=== PATIENT | female | born 1965 | race Caucasian/White ===

== ENCOUNTER → 2020-04-29 09:40 | Outpatient (BNVA) | payer MEDICAID, SELFPAY | PROVIDERS: Visit Provider Family Medicine | DX: I10 Essential (primary) hypertension (principal); G47.10 Hypersomnia, unspecified | CPT/HCPCS: 80053; 80061; 82044; 85025 ==

== ENCOUNTER → 2020-07-21 17:47 | Outpatient (BNVA) | payer MEDICAID, SELFPAY | PROVIDERS: PCP Family Medicine; Visit Provider Nurse Practitioner Family | DX: Z20.828 Contact with and (suspected) exposure to other viral communicable diseases (principal); J06.9 Acute upper respiratory infection, unspecified | CPT/HCPCS: 87635 ==

== ENCOUNTER 2021-01-25 02:27 | Emergency (ER) | payer BC, MEDICAID, SELFPAY ==
[2021-01-25 02:35] VITALS: BP 199/122; PULSE 94; RESP 18; TEMP 36.7; O2SAT 98; BMI 31.9
[2021-01-25 02:57] VITALS: PULSE 94
--- NOTE | 2021-01-25 03:13 | W.ED.EXTPRO ---
HPI - Extremity Problem General: Chief complaint: Extremity Problem,Nontraumatic Stated complaint: finger pain Time Seen by Provider: 01/25/21 02:32 History of Present Illness: HPI Narrative: 55-year-old female who had a hangnail on her right ring finger. She removed it on her own, and then began to notice swelling and redness. It swollen quite badly at the tip this morning with redness. She states the pain is excruciating . No fever. No vomiting no streaking. She still can bend the finger. MD Complaint: extremity pain and extremity swelling Onset (ago): day(s) Pain Consistency: constant Location: right Severity scale (1-10): >10 Quality: burning and stabbing Radiation: none Relieving factors: nothing Exacerbating factors: range of motion and palpation Associated symptoms: Reports rash; Deny chest pain or fever(s) Review of Systems Const: Denies: fever(s) Card: Denies: chest pain Resp: Denies: dyspnea GI: Reports: nausea; Denies: abdominal pain or vomiting Skin/Breast: Reports: rash [facility] ED PFSH: Medical History (Updated 01/25/21 @ 02:58 by [place] Ocho[place] DO) Essential hypertension Surgical History History of neck surgery C4-C5 fusion. Family History Other CAD (coronary artery disease) Social History Smoking and tobacco status: current every day smoker cigarettes Packs smoked per day: 0.5 Alcohol intake: never Physical Exam Const: COMMON NORMALS: patient oriented x3 and alert GENERAL APPEARANCE: not ill appearing Chest: COMMONS NORMALS: normal inspection of the chest Resp: COMMON NORMALS: normal respiratory effort, No use of accessory muscles and clear to auscultation bilaterally AUSCULTATION: clear to auscultation bilaterally Cardio: COMMON NORMALS: regular rate, regular rhythm and No murmurs present (Cardio) RATE: regular rate RHYTHM: regular rhythm GI: COMMON NORMALS: Normal to inspection, nondistended, normoactive bowel sounds present and Soft to palpation PALPATION: Yes Soft to palpation Neuro: COMMON NORMALS: patient oriented x3 SENSORIUM/ORIENTATION: Yes alert Course Vital Signs: Vital signs: Vital Signs Temperature 98.0 F 01/25/21 02:35 Pulse Rate 94 01/25/21 02:57 Respiratory Rate 18 01/25/21 02:35 Blood Pressure 199/122 01/25/21 02:35 Pulse Oximetry 98 01/25/21 02:35 MDM - Extremity (Nontraumatic) MDM Narrative: Medical decision making narrative: Obvious cellulitis and paronychia to the tip of the right ring finger. No fever. She will be treated with pain medication antibiotics. 1 dose of dexamethasone for the swelling. Discharge Plan Discharge Patient Disposition: Home Clinical Impression: Acute paronychia of finger Qualifiers: Laterality: right Qualified Code(s): L03.011 - Cellulitis of right finger Condition: Stable Prescriptions: New Bactrim DS 800-160 mg tablet 1 tab PO BID 10 Days Qty: 20 RF: 0 Percocet 7.5-325 mg tablet 1 tab PO Q8H PRN (Reason: pain) Qty: 7 RF: 0 No Action lisinopril-hydrochlorothiazide 10-12.5 mg tablet 1 tab PO DAILY Qty: 90 RF: 1 Discharge Orders: Discharge ED (Routine); Ordered 01/25/21 Ordered By: [place] Ocho[place] Referrals: Ana Paula May DO [Primary Care Provider] - 4-7 days (for wound check) Patient Instructions: Paronychia (ED), Cellulitis (ED), Opioid Safety Activity Restrictions/Additional Instructions: Return for fever greater than 100 despite 2-3 doses of antibiotics, worsening pain or swelling despite treatment and antibiotics, streaking redness up the hand and forearm, other concerning symptoms. Coding Level of Care Code ED Christian Education Director for Trina Solorio
[2021-01-25] MEDS: ketorolac 30 mg/mL INJ 10 MG PO (03:14)
[2021-01-25] MEDS: sulfamethoxazole-trimeth DS 160-800 mg Tablet 2 TAB PO (03:15)
[2021-01-25] MEDS: dexamethasone 4 mg Tablet 10 MG PO (03:15)
[2021-01-25] MEDS: oxyCODONE-APAP 5-325 mg Tablet 2 TAB PO (03:16)
[2021-01-25 03:18] VITALS: RESP 18; TEMP 36.7
== END 2021-01-25 03:19 | disposition home or self-care (01) ==
PROVIDERS: Emergency Provider Emergency Medicine; PCP Family Medicine
DX: L03.011 Cellulitis of right finger (principal); I10 Essential (primary) hypertension; F17.210 Nicotine dependence, cigarettes, uncomplicated
CPT/HCPCS: 99283; J1885; J8540

== ENCOUNTER → 2021-05-06 13:23 | Outpatient (BNVA) | payer BC, MEDICAID, SELFPAY | PROVIDERS: PCP Family Medicine; Visit Provider Nurse Practitioner | DX: Z20.828 Contact with and (suspected) exposure to other viral communicable diseases (principal); Z11.52 Encounter for screening for COVID-19 | CPT/HCPCS: 87635 ==

== ENCOUNTER 2021-05-31 08:10 | Emergency (ER) | payer BC, MEDICAID, SELFPAY ==
[2021-05-31 08:41] VITALS: BP 167/85; PULSE 94; RESP 16; TEMP 36.5; O2SAT 95; BMI 32.6
[2021-05-31 08:46] VITALS: BP 167/85; PULSE 94; RESP 16; O2SAT 97
--- NOTE | 2021-05-31 08:46 | ED_ITS ---
HPI - Animal Bite General: Chief Complaint: Animal Bite Stated Complaint: POSSIBLE SPIDER BITE TO BILATERAL ARMS Time Seen by Provider: 05/31/21 08:37 Source: patient Mode of arrival: ambulatory Limitations: no limitations History of Present Illness: HPI narrative: 56-year-old female who states that yesterday she woke up with she believes insect bite to her right and left arm. She does have areas of erythema to both arms with what appears to be bites in the middle. She denies any fever. States that they are quite pruritic. She denies any pain. Denies any worsening improving factors. Associated symptoms: Deny chills, fever(s) or headache(s) Review of Systems Const: Denies: fever(s), chills, body aches or change in appetite Eyes: Denies: blurry vision or eye discomfort ENMT: Denies: throat pain or dental pain Card: Denies: chest pain Resp: Denies: dyspnea GI: Denies: abdominal pain, nausea, vomiting or diarrhea : Denies: dysuria Musc: Denies: neck pain or back pain Skin/Breast: Reports: rash Neuro: Denies: headache(s) Psych: Denies: depression Wally/Lymph: Denies: easy bruising All/Imm: Denies: urticaria PFSH ED PFSH: Medical History (Updated 05/31/21 @ 08:47 by Win Herring MD) Essential hypertension Surgical History History of neck surgery C4-C5 fusion. Family History Other CAD (coronary artery disease) Social History Smoking and tobacco status: current every day smoker cigarettes Packs smoked per day: 0.5 Alcohol intake: never Physical Exam Const: COMMON NORMALS: no acute distress, patient oriented x3 and healthy appearing HENMT: COMMON NORMALS: normocephalic and atraumatic HEAD & SCALP: normocephalic and atraumatic Eye: COMMON NORMALS: Equal, round and reactive pupils present and EOMs intact bilaterally PUPIL: Yes Equal, round and reactive pupils present Neck/C-Spine: COMMON NORMALS: full ROM and supple Chest: COMMONS NORMALS: normal inspection of the chest and normal palpation of entire chest wall Resp: COMMON NORMALS: normal respiratory effort, No retractions, No use of accessory muscles and clear to auscultation bilaterally AUSCULTATION: clear to auscultation bilaterally Cardio: COMMON NORMALS: regular rate, regular rhythm and No murmurs present (Cardio) RATE: regular rate RHYTHM: regular rhythm GI: COMMON NORMALS: Normal to inspection, nondistended, normoactive bowel sounds present, Soft to palpation, non-tender and no masses PALPATION: Yes Soft to palpation Extremity: COMMON NORMALS: full ROM NARRATIVE EXTREMITY EXAM: Erythema to left inner arm with an insect bite to the center with roughly 3 cm of surrounding erythema another insect bite to right arm with very minimal erythema no abscess noted Neuro: COMMON NORMALS: patient oriented x3, moves all extremities and no focal motor deficits Psych: COMMON NORMALS: mental status grossly normal, Normal thought process present and cooperative THOUGHT PROCESS: Normal thought process present Skin: COMMON NORMALS: no rashes or lesions noted and no wounds GENERAL SKIN EXAM: no rashes or lesions noted Course Vital Signs: Vital signs: Vital Signs Temperature 97.7 F 05/31/21 08:41 Pulse Rate 94 05/31/21 08:46 Respiratory Rate 16 05/31/21 08:46 Blood Pressure 167/85 05/31/21 08:46 Pulse Oximetry 97 05/31/21 08:46 MDM - Animal Bite MDM Narrative: Medical decision making narrative: Patient presents with likely insect bite to her bilateral arms. More left arm does have some erythema surrounding it could be histamine reaction also could be a slight cellulitis as it is warm to touch. We will start her on Bactrim and Keflex. She is to follow-up with PCP and return if worsening. She has no abscess formation. Discharge Plan Discharge Patient Disposition: Home Clinical Impression: Insect bite Qualifiers: Encounter type: initial encounter Site of insect bite: upper arm Laterality: unspecified laterality Qualified Code(s): S40.869A - Insect bite (nonvenomous) of unspecified upper arm, initial encounter Cellulitis Qualifiers: Site of cellulitis: extremity Site of cellulitis of extremity: upper extremity Laterality: unspecified laterality Qualified Code(s): L03.119 - Cellulitis of unspecified part of limb Condition: Stable Prescriptions: New Bactrim DS 800-160 mg tablet 1 tab PO BID 10 Days Qty: 20 RF: 0 cephalexin 500 mg capsule 500 mg PO TID 7 Days Qty: 21 RF: 0 No Action atorvastatin 20 mg tablet 20 mg PO DAILY Qty: 30 RF: 0 lisinopril-hydrochlorothiazide 10-12.5 mg tablet 1 tab PO DAILY Qty: 30 RF: 0 Discharge Orders: Discharge ED (Routine); Ordered 05/31/21 Ordered By: Win Herring Referrals: Ana Paula May DO [Primary Care Provider] - 1-3 days Discharge Diet: Advance as tolerated Discharge Activity: Resume usual activity Patient Instructions: Opioid Safety Coding Level of Care Code ED Outcomes Manager for Trina Solorio
[2021-05-31] MEDS: diphenhydrAMINE 50 mg Capsule PO (08:50)
[2021-05-31] MEDS: famotidine 20 mg Tablet 40 MG PO (08:50)
[2021-05-31 08:59] VITALS: BP 156/79; PULSE 90; RESP 16; O2SAT 94
== END 2021-05-31 08:59 | disposition home or self-care (01) ==
LOC: ER 12:36
PROVIDERS: Emergency Provider Emergency Medicine; PCP Family Medicine
DX: S40.862A Insect bite (nonvenomous) of left upper arm, initial encounter (principal); S40.861A Insect bite (nonvenomous) of right upper arm, initial encounter; W57.XXXA Bitten or stung by nonvenomous insect and other nonvenomous arthropods, initial encounter; L03.114 Cellulitis of left upper limb; I10 Essential (primary) hypertension; F17.210 Nicotine dependence, cigarettes, uncomplicated
CPT/HCPCS: 99283; Q0163

== ENCOUNTER → 2021-11-19 15:17 | Outpatient (BNVA) | payer BC, MEDICAID, SELFPAY | PROVIDERS: PCP Family Medicine; Visit Provider Nurse Practitioner Family | DX: Z20.822 Contact with and (suspected) exposure to COVID-19 (principal) | CPT/HCPCS: 87635 ==

== ENCOUNTER → 2021-11-20 01:34 | Outpatient (BNVA) | payer BC, MEDICAID, SELFPAY | PROVIDERS: PCP Family Medicine; Visit Provider Nurse Practitioner Family | DX: Z20.822 Contact with and (suspected) exposure to COVID-19 (principal); I10 Essential (primary) hypertension; F17.219 Nicotine dependence, cigarettes, with unspecified nicotine-induced disorders; B34.9 Viral infection, unspecified | CPT/HCPCS: 87801 ==

== ENCOUNTER → 2022-04-08 12:58 | Outpatient (BNVA) | payer BC, MEDICAID, SELFPAY | PROVIDERS: PCP Family Medicine; Visit Provider Radiology Diagnostic Radiology | DX: I10 Essential (primary) hypertension (principal); M25.561 Pain in right knee; F17.219 Nicotine dependence, cigarettes, with unspecified nicotine-induced disorders | CPT/HCPCS: 73562 ==

== ENCOUNTER → 2022-06-27 18:39 | Outpatient (BNVA) | payer BC, MEDICAID, SELFPAY | PROVIDERS: PCP Family Medicine; Visit Provider Family Medicine | DX: Z20.822 Contact with and (suspected) exposure to COVID-19 (principal); I10 Essential (primary) hypertension | CPT/HCPCS: 87426 ==

== ENCOUNTER → 2024-06-07 07:15 | Outpatient (BNVA) | payer BC, MEDICAID, SELFPAY | PROVIDERS: PCP Nurse Practitioner Family; Visit Provider Nurse Practitioner Family | DX: I10 Essential (primary) hypertension (principal); E78.5 Hyperlipidemia, unspecified; F17.219 Nicotine dependence, cigarettes, with unspecified nicotine-induced disorders | CPT/HCPCS: 80053; 80061; 84443; 85025 ==

== ENCOUNTER 2024-08-08 09:47 | Day surgery (SDC) | payer BC, MEDICAID, SELFPAY ==
[2024-08-08] VITALS (7 sets, daily range): BP systolic 120–173; BP diastolic 68–102; PULSE 63–86; RESP 18; TEMP 36.1–36.2; O2SAT 95–99; BMI 31.9
--- NOTE | 2024-08-08 09:54 | ANES.PREANE2 ---
Pre-Anesthetic Assessment Height/Weight: Height 1.73 m Preop Diagnosis: abd. pain Operation Date: 08/08/24 11:00 Proposed Procedures p Colonoscopy - 38449, G0105, K52.9, R10.9(Not Applicable) - Daquan Crawford DO Familial anesthetic complications: none Was Beta Tammy taken within 24 hours: N/A Was Clonidine taken within 24 hours: N/A Social Tobacco (1 ppd. smoked this AM- increased airway risk, patient verbalized understanding) Exam alert and oriented x 3 Airway Submandibular: within normal limits Cervical ROM: within normal limits Mallampati: Class II Dentition: full Pulmonary Chronic Obstructive Pulmonary Disease (patient denies) CV/HEM Stable Angina (pt states she has had chest pain that radiates to jaw and throat, many times. she doesnt recall any preciptating factors, just comes out of nowhere . pt. states she hasnt had it in at least a year .), Hypertension and Murmur (systolic murmur) CORRECTIONAL CLASSIFICATION COUNSELOR discussed at length to go to ER when chest pain occurs again and discussed chest pain is a life or emergency; pt. verbalized understanding. CORRECTIONAL CLASSIFICATION COUNSELOR ordered EKG. CORRECTIONAL CLASSIFICATION COUNSELOR also discussed she is at higher risk for [place] under anesthesia d/t previous chest pain and never going to ER. pt. states she doesnt go to doctor unless she is sick. quit taking her BP meds d/t not wanting to go to follow-up appointment with doctor. does not have PCP, only sees ER doc at this time. currently METS 4, no chest pain in at least a year . None reported Hepatic None reported GI None reported Metabolic None reported Musc/skel None reported Neuropsych None reported Anesthetic Plan ASA status: 3 Anesthesia: Anesthesia Evaluation, General and MAC Risk of > 500 ml blood loss (7ml/kg in children): No Medications/Allergies Home Medications Medication Instructions Recorded Confirmed Last Taken Type fluoxetine 20 mg capsule (Prozac) 20 mg PO DAILY #30 caps 07/09/24 08/08/24 08/07/24 Rx lisinopril 10 mg tablet 10 mg PO DAILY #30 tabs 07/17/24 08/07/24 Unknown Rx Allergies Allergy/AdvReac Type Severity Reaction Status Date / Time No Known Allergies Allergy Verified 08/08/24 10:17 [facility] Anesthesia Medical History Hemorrhoids Encounter for screening colonoscopy Acute conjunctivitis, bilateral URI with cough and congestion Essential hypertension Surgical History History of neck surgery C4-C5 fusion. Family History Other CAD (coronary artery disease) Social History Smoking and tobacco/nicotine status: never used tobacco/nicotine Alcohol intake: never Substance/Drug Use: former Date of last use: 2006 Data Anesthesia Cardiac Studies: No Data to Display
[2024-08-08] MEDS: sodium chloride 0.9% 1,000 ML 30 ML IV (10:20)
--- NOTE | 2024-08-08 10:30 | ECG_ITS ---
[facility] Test Date: 2024-08-08 Pat Name: Mame Lima Department: Room: Gender: Female Building Operator: : 1965 Requested By: Lachelle Martinez Order Number: [id number] Reading MD: AMARILYS EDWARD Measurements Intervals [place] Rate: 73 P: 33 MS: 159 QRS: 17 QRSD: 87 T: 54 QT: 410 QTc: 454 Interpretive Statements SINUS RHYTHM No previous ECG available for comparison Electronically Signed On 08-08-2024 20:05:49 CDT by AMARILYS EDWARD [id number]
--- NOTE | 2024-08-08 10:47 | PM.HP ---
Providers/Chief Complaint Primary Care Provider: Yuli Singer NP Chief Complaint: K52.9 History of Present Illness Mame Lima is a 59 year old female Review of Systems General: Reports: 10 or more systems reviewed and unremarkable except in HPI and below Medications/Allergies Home Medications Medication Instructions Recorded Confirmed Last Taken Type fluoxetine 20 mg capsule (Prozac) 20 mg PO DAILY #30 caps 07/09/24 08/08/24 08/07/24 Rx lisinopril 10 mg tablet 10 mg PO DAILY #30 tabs 07/17/24 08/07/24 Unknown Rx Allergies Allergy/AdvReac Type Severity Reaction Status Date / Time No Known Allergies Allergy Verified 08/08/24 10:17 PFSH Acute PFSH: Medical History Hemorrhoids Encounter for screening colonoscopy Acute conjunctivitis, bilateral URI with cough and congestion Essential hypertension Surgical History History of neck surgery C4-C5 fusion. Family History Other CAD (coronary artery disease) Social History Smoking and tobacco/nicotine status: never used tobacco/nicotine Alcohol intake: never Substance/Drug Use: former Date of last use: 2006 Vitals/I&O/Wt Last Vital Signs Temp 97.2 F L 08/08/24 10:07 Pulse 86 08/08/24 10:07 Resp 18 08/08/24 10:07 BP 159/102 08/08/24 10:07 Pulse Ox 97 08/08/24 10:07 O2 Del Method Room Air 08/08/24 10:07 Weight last 48 hrs Weight 210 lb A&P Assessment and plan (1) Chronic diarrhea: (2) Abdominal pain: Plan Diagnostic colonoscopy with random biopsies Attestations Medical Necessity Statement*: Home Coding Level of Care Code Acute Code for Chg Fwd Diagnoses Chronic diarrhea K52.9 Abdominal pain R10.9
--- NOTE | 2024-08-08 11:28 | ANE.PACU2 ---
Inpatient post-anesthesia follow up: Airway intact: Yes Vital signs: Temperature 97 F Pulse Rate 63 Respiratory Rate 18 Blood Pressure 143/75 Pulse Oximetry 99 Oxygen Delivery Me thod Room Air Oxygen Flow Rate Fraction of Inspir ed Oxygen Hydration adequate: Yes Nausea and vomiting: No Pain level: 1 Mental status: Baseline
--- NOTE | 2024-08-08 11:43 | PC.NURSE ---
Dr. Crawford notified of pt complaint of headache. dilaudid 1 mg ivp ordered.
[2024-08-08] MEDS: HYDROmorphone 1 mg/mL INJ 1 mL IV (11:54)
[2024-08-08 12:53] LABS: C.Diff PCR (Lab) NEGATIVE (Negative)
== END 2024-08-08 12:33 | disposition home or self-care (01) ==
PROVIDERS: PCP Nurse Practitioner Family; Visit Provider Surgery
PROC: 0DJD8ZZ Inspection of Lower Intestinal Tract, Via Natural or Artificial Opening Endoscopic (ICD-10-PCS; CPT 45378; principal; 2024-08-08 11:00)
DX: K52.9 Noninfective gastroenteritis and colitis, unspecified (principal); I10 Essential (primary) hypertension; K64.8 Other hemorrhoids; D12.5 Benign neoplasm of sigmoid colon; F17.200 Nicotine dependence, unspecified, uncomplicated
CPT/HCPCS: 45380; 45385; 82274; 83630; 87045; 87177; 87209; 87427; 87449; 87493; 88305; 93005; J0360; J1170; J2704; J7030

== ENCOUNTER 2024-08-10 07:33 | Outpatient (CLI) | payer BC, MEDICAID, SELFPAY ==
--- NOTE | 2024-08-10 08:00 | NM_ITS ---
WS: [id number] NUCLEAR MEDICINE HIDA SCAN CLINICAL INFORMATION: Abdominal pain TECHNIQUE: Following intravenous administration of 8.5 mCi of technetium 99m mebrofenin, images of th e abdomen were obtained over the course of 60 minutes. Next, gallbladder ejection fraction was determ ined by obtaining preprandial and one-hour postprandial images of the gallbladder following oral viviane stion of Ensure. COMPARISON: None. FINDINGS: Normal hepatic uptake at 5 minutes. Gallbladder is visualized by 30 minutes. No evidence of acute cho lecystitis. Normal common bile duct and small bowel activity. Normal hepatic excretion. Gallbladder ejection fraction 48% within normal limits. No evidence of chronic cholecystitis. NM/NM hepatobiliary w phar* [id number] IMPRESSION: 1. No evidence of acute or chronic cholecystitis. 2. Normal gallbladder ejection fraction 48% within normal limits.
== END 2024-08-10 07:34 | disposition home or self-care (01) ==
LOC: RAD 07:33
PROVIDERS: PCP Nurse Practitioner Family; Visit Provider Surgery
DX: R10.9 Unspecified abdominal pain (principal)
CPT/HCPCS: 78227; A9537

== ENCOUNTER → 2024-08-27 13:44 | Outpatient (BNVA) | payer BC, MEDICAID, SELFPAY | PROVIDERS: PCP Nurse Practitioner Family; Visit Provider Surgery | DX: R10.9 Unspecified abdominal pain (principal) | CPT/HCPCS: 36415; 86003; 86008 ==

== ENCOUNTER → 2024-09-18 05:39 | Day surgery (SDC) | payer BC, MEDICAID, SELFPAY ==
[2024-09-18] VITALS (13 sets, daily range): BP systolic 131–160; BP diastolic 67–93; PULSE 69–92; RESP 14–18; TEMP 36.4–36.8; O2SAT 94–100; BMI 31.9
[2024-09-18] MEDS: sodium chloride 0.9% 1,000 ML 30 ML IV (06:17)
--- NOTE | 2024-09-18 06:46 | W.PM.OPSUD ---
Surgery/Procedure H&P Update DATE OF PROCEDURE: September 18, 2024 DATE H&P PERFORMED: 08/27/24 H&P UPDATE INFORMATION: I have reviewed H&P completed within last 30 days, I have examined patient prior to procedure and No changes to prior documentation PLANNED PROCEDURE: Operation Date: 09/18/24 07:00 Proposed Procedures p Hemorrhoidectomy - 48147, 64737, K64.8(Not Applicable) - Daquan Crawford, DO
--- NOTE | 2024-09-18 06:59 | ANES.PREANE2 ---
Pre-Anesthetic Assessment Height/Weight: Height 1.73 m Weight 95.254 kg Temp Pulse Resp BP Pulse Ox O2 Del Method 98.2 F 92 18 152/78 100 Room Air 09/18/24 05:56 09/18/24 05:56 09/18/24 05:56 09/18/24 05:56 09/18/24 05:56 09/18/24 06:08 Operation Date: 09/18/24 07:00 Proposed Procedures p Hemorrhoidectomy - 22378, 42351, K64.8(Not Applicable) - Daquan Crawford DO Familial anesthetic complications: None Was Beta Tammy taken within 24 hours: N/A Was Clonidine taken within 24 hours: N/A Last intake: Intake Last Liquid Date 09/17/24 Last Liquid Time 23:00 Last Solid Date 09/17/24 Last Solid Time 23:00 Social Tobacco and No alcohol Exam alert, oriented x 3, clear to auscultation bilaterally and regular rate & rhythm Airway Mallampati: Class II Dentition: chipped CV/HEM Hypertension Metabolic Hyperlipidemia Anesthetic Plan ASA status: 2 Anesthesia: General Risk of > 500 ml blood loss (7ml/kg in children): No Medications/Allergies Home Medications Medication Instructions Recorded Confirmed Last Taken Type fluoxetine 20 mg capsule (Prozac) 20 mg PO DAILY #30 caps 07/09/24 09/17/24 09/17/24 Rx lisinopril 10 mg tablet 10 mg PO DAILY #30 tabs 08/08/24 09/17/24 09/17/24 Rx Allergies Allergy/AdvReac Type Severity Reaction Status Date / Time No Known Allergies Allergy Verified 09/17/24 17:16 Current Medications Generic Name Dose Route Start Last Admin Trade Name Freq PRN Reason Stop Dose Admin Sodium Chloride 1,000 mls @ 30 mls/hr 09/18/24 06:00 09/18/24 06:17 Sodium Chloride 0.9% IV 09/19/24 05:59 30 mls/hr .Q24H JULIENNE Administration PFSH Anesthesia Medical History (Updated 08/27/24 @ 13:37 by Daquan Crawford DO) Tubular adenoma of colon Hemorrhoids Encounter for screening colonoscopy Acute conjunctivitis, bilateral URI with cough and congestion Essential hypertension Surgical History History of neck surgery C4-C5 fusion. Family History Other CAD (coronary artery disease) Social History Smoking and tobacco/nicotine status: never used tobacco/nicotine Alcohol intake: never Substance/Drug Use: former Date of last use: 2006 Data Anesthesia Cardiac Studies: No Data to Display
[2024-09-18] MEDS: ceFAZolin 2,000 mg SDV 2000 MG IVP (07:42)
[2024-09-18] MEDS: thrombin 5,000 unit SDV 5000 UNIT XX (08:03)
[2024-09-18] MEDS: BUPivacaine liposome 13.3 mg/mL SDV 20 mL 133 MG INFILTRATI (08:03)
[2024-09-18] MEDS: BUPivacaine 0.5% INJ 10 mL INJECTION (08:03)
--- NOTE | 2024-09-18 08:29 | P.OP_ITS ---
Operative Report Date of procedure: September 18, 2024 Pre-op diagnosis: Internal hemorrhoids Post-op diagnosis: same Procedure done: Hemorrhoidectomy X3 hemorrhoidal pillars Implants: Thrombin-soaked Gelfoam Specimens removed/disposition: All 3 hemorrhoidal pillars Surgeon: Daquan Crawford DO Anesthesia: General and Local Estimated blood loss (mL): 5 Complications: None apparent Brief History: This is a very pleasant 59-year-old female presented my office with rectal bleeding. She was diagnosed with hemorrhoids. A course of Anusol did not sufficiently strengthen her hemorrhoids and she desired hemorrhoidectomy. The risks and benefits were explained and documented. Procedure: Patient was well in the operative room and general endotracheal ovation was achieved by the department anesthesia. He was then placed into the prone jackknife position. The anus was inspected prepped and draped in usual sterile fashion. A timeout was performed. All present were in agreement. Retractor was used to examine the anus and he had sizable hemorrhoids at all 3 pillars. The largest pillar was the left lateral. All 3 pillars were taken in the same manner. The exterior most edge of the hemorrhoid was slightly ligated with electrocautery. The harmonic scalpel was then used to excise all 3 hemorrhoidal pillars. There was minimal bleeding and a significant amount of healthy anoderm between the pillars on the left and the right anteriorly and posteriorly. T hrombin-soaked Gelfoam was then placed into the anus. Sterile bandage was applied. Patient tolerated procedure well.
[2024-09-18] MEDS: HYDROcodone-acetaminophen 7.5-325 mg Tablet 1 TAB PO (09:56)
--- NOTE | 2024-09-18 10:10 | ANE.PACU2 ---
Inpatient post-anesthesia follow up: Airway intact: Yes Vital signs: Temperature 97.8 F Pulse Rate 73 Respiratory Rate 17 Blood Pressure 151/76 Pulse Oximetry 98 Oxygen Delivery Me thod Room Air Oxygen Flow Rate 6 Fraction of Inspir ed Oxygen Hydration adequate: Yes Nausea and vomiting: No Pain level: 1 Mental status: Baseline
== END | disposition home or self-care (01) ==
PROVIDERS: Visit Provider Surgery
PROC: (CPT 46260; principal; 2024-09-18 07:00)
DX: K64.8 Other hemorrhoids (principal); I10 Essential (primary) hypertension; E78.5 Hyperlipidemia, unspecified
CPT/HCPCS: 46260; 88304; C9290; J0690; J1100; J2250; J2371; J2405; J2704; J2710; J3010; J3490; J7030

== ENCOUNTER 2024-09-19 07:58 | Outpatient (CLI) | payer BC, MEDICAID, SELFPAY ==
--- NOTE | 2024-09-19 08:00 | US_ITS ---
WS: [id number] RIGHT UPPER QUADRANT ULTRASOUND HISTORY: abdominal pain COMPARISON: None available. Liver: 15.7 cm in length. Normal size liver. Mild coarse echotexture. Surface of the liver is very sl ightly nodular and irregular suggesting cirrhosis. Portal Vein: Normal hepatopetal flow with monophasic waveform. Gallbladder: Gallbladder is completely distended with stones with shadowing. Gallbladder is probably contracted around the stones. There is mild gallbladder wall thickening throughout measuring up to 4 mm. No pericholecystic fluid. CBD: 0.4 cm Pancreas: Normal size and echogenicity. Right kidney: 10.6 cm in length. Normal size kidney. Hypoechoic mass from the superior pole of the RI GHT kidney. This is seen only on one image measuring approximately 2.6 x 2.6 cm. On the imaging submi tted this is not a simple cyst. Aorta and IVC: Unremarkable abdominal aorta and IVC. No ascites. US/US gall bladder [id number] IMPRESSION: 1. Cholelithiasis. Stone filled gallbladder with mild gallbladder wall thicken ing. No pericholecystic fluid or duct obstruction. 2. Possible solid mass or complex cyst upper pole RIGHT kidney. Recommend jovanni l mass CT protocol or MRI renal mass protocol. 3. No intrahepatic duct dilatation.
== END 2024-09-19 07:59 | disposition home or self-care (01) ==
LOC: RAD 07:59
PROVIDERS: Visit Provider Surgery
DX: K80.20 Calculus of gallbladder without cholecystitis without obstruction (principal); R93.421 Abnormal radiologic findings on diagnostic imaging of right kidney; R10.9 Unspecified abdominal pain
CPT/HCPCS: 76705

== ENCOUNTER 2024-11-20 06:40 | Day surgery (SDC) | payer BC, MEDICAID, SELFPAY ==
[2024-11-20] VITALS (16 sets, daily range): BP systolic 93–173; BP diastolic 55–96; PULSE 72–111; RESP 15–20; TEMP 36.3–36.5; O2SAT 92–98; BMI 31.7
--- NOTE | 2024-11-20 07:00 | PM.HP ---
Providers/Chief Complaint Chief Complaint: K80.20 History of Present Illness Mame Lima is a 59 year old female Review of Systems General: Reports: 10 or more systems reviewed and unremarkable except in HPI and below Medications/Allergies Home Medications Medication Instructions Recorded Confirmed Last Taken Type fluoxetine 20 mg capsule (Prozac) 20 mg PO DAILY #30 caps 07/09/24 11/19/24 11/17/24 Rx Allergies Allergy/AdvReac Type Severity Reaction Status Date / Time No Known Allergies Allergy Verified 10/08/24 07:54 PFSH Acute PFSH: Medical History (Updated 10/08/24 @ 09:38 by Daquan Crawford DO) Tubular adenoma of colon Hemorrhoids Encounter for screening colonoscopy Acute conjunctivitis, bilateral URI with cough and congestion Essential hypertension Surgical History (Updated 10/08/24 @ 09:38 by Daquan Crawford DO) History of appendectomy Hx of hemorrhoidectomy Hemorrhoidectomy X3 hemorrhoidal pillars 09/18/24 Dr Crawford History of neck surgery C4-C5 fusion. Family History Other CAD (coronary artery disease) Social History Smoking and tobacco/nicotine status: current every day tobacco/nicotine user (1PPD) cigarettes Packs smoked per day: 0.5 Alcohol intake: never Substance/Drug Use: former Date of last use: 2006 Vitals/I&O/Wt Last Vital Signs Temp 97.3 F L 11/20/24 06:54 Pulse 111 H 11/20/24 06:54 Resp 18 11/20/24 06:54 BP 173/96 11/20/24 06:54 Pulse Ox 96 11/20/24 06:54 O2 Del Method Room Air 11/20/24 06:55 Weight last 48 hrs Weight 209 lb A&P Assessment and plan (1) Symptomatic cholelithiasis: Plan Laparoscopic cholecystectomy Attestations Medical Necessity Statement*: Home Coding Level of Care Code Acute Code for Chg Fwd Diagnoses Symptomatic cholelithiasis K80.20
[2024-11-20] MEDS: sodium chloride 0.9% 1,000 ML 30 ML IV (07:24)
--- NOTE | 2024-11-20 07:38 | ANES.PREANE2 ---
Pre-Anesthetic Assessment Height/Weight: Height 5 ft 8 in Weight 209 lb Temp Pulse Resp BP Pulse Ox O2 Del Method 97.3 F L 111 H 18 173/96 96 Room Air 11/20/24 06:54 11/20/24 06:54 11/20/24 06:54 11/20/24 06:54 11/20/24 06:54 11/20/24 06:55 Preop Diagnosis: symptomatic cholethiasis Operation Date: 11/20/24 08:20 Proposed Procedures p Laparoscopic Cholecystectomy - 87315, k80.20(Not Applicable) - Daquan Crawford DO Was Beta Tammy taken within 24 hours: N/A Was Clonidine taken within 24 hours: N/A Last intake: Intake Last Liquid Date 11/19/24 Last Liquid Time 23:30 Last Solid Date 11/19/24 Last Solid Time 21:00 Social Tobacco and No alcohol Exam alert, oriented x 3, clear to auscultation bilaterally and regular rate & rhythm Airway Submandibular: within normal limits Cervical ROM: within normal limits Dentition: full Anesthetic Plan ASA status: 3 Anesthesia: General Other: No prior issues with anesthesia NPO since yesterday Patient currently has a stuffy nose, denies any shortness of breath, fevers, chills History of smoking Hypertension, preop BP 173/96. Take no home BP meds EKG showing sinus rhythm Discussed with patient risk of anesthesia, she is aware that she is at increased risk of a pulmonary complication given her head cold and smoking history. She would like to proceed at this time plan for GETA with Afrin no spray Medications/Allergies Home Medications Medication Instructions Recorded Confirmed Last Taken Type fluoxetine 20 mg capsule (Prozac) 20 mg PO DAILY #30 caps 07/09/24 11/19/24 11/17/24 Rx Allergies Allergy/AdvReac Type Severity Reaction Status Date / Time No Known Allergies Allergy Verified 10/08/24 07:54 Current Medications Generic Name Dose Route Start Last Admin Trade Name Freq PRN Reason Stop Dose Admin Sodium Chloride 1,000 mls @ 30 mls/hr 11/20/24 06:45 11/20/24 07:24 Sodium Chloride 0.9% IV 11/21/24 06:44 30 mls/hr .Q24H JULIENNE Administration PFSH Anesthesia Medical History (Updated 10/08/24 @ 09:38 by Daquan Crawford DO) Tubular adenoma of colon Hemorrhoids Encounter for screening colonoscopy Acute conjunctivitis, bilateral URI with cough and congestion Essential hypertension Surgical History (Updated 10/08/24 @ 09:38 by Daquan Crawford DO) History of appendectomy Hx of hemorrhoidectomy Hemorrhoidectomy X3 hemorrhoidal pillars 09/18/24 Dr Crawford History of neck surgery C4-C5 fusion. Family History Other CAD (coronary artery disease) Social History Smoking and tobacco/nicotine status: current every day tobacco/nicotine user (1PPD) cigarettes Packs smoked per day: 0.5 Alcohol intake: never Substance/Drug Use: former Date of last use: 2006 Data Anesthesia Cardiac Studies: No Data to Display
[2024-11-20] MEDS: ceFAZolin 2,000 mg SDV 2000 MG IVP (08:12)
[2024-11-20] MEDS: lidocaine-epi 2% PF 1:200,000 20 mL SDV XX (08:48)
--- NOTE | 2024-11-20 08:48 | P.ANES_ITS ---
Anesthesia Procedures Procedure/Date: 11/20/24 Intubation Procedure Narrative: My hands were washed immediately prior to the procedure. I wore a surgical cap, mask with protective eyewear, gown and gloves throughout the procedure. The patient was placed on a surveillance monitor including continuous pulse oximetry. The patient received Fentanyl, Midazolam, Lidocaine, Propofol and Rocuronium for induction and for adequate paralysis. Please see the MAINTENANCE AIDE's notes for further details on the medications used. Intubation was attempted with a MAC 3 but given the patient's anterior and difficult airway, a hand held GlideScope, was used, and the patient was intubated on the second attempt. The stylet was removed and cuff balloon was inflated. Appropriate endotracheal tube position was confirmed by direct visualization of vocal cord passage, fogging of the tube, CO2 colormetric indicator and symmetric breath sounds. The tube was secured at 22 cm at the lips. Post Other Information: Dr. Colbert was the Anesthesiologist at this time.
--- NOTE | 2024-11-20 09:11 | P.OP_ITS ---
Operative Report Date of procedure: November 20, 2024 Surgeon: Daquan Crawford DO Brief History: This is a very pleasant 59-year-old female who presented my office with abdominal pain. She is diagnosed with symptomatic cholelithiasis. Laparoscopic cholecystectomy was indicated. The risks and benefits were explained and documented. Procedure: Preoperative diagnosis: Symptomatic cholelithiasis Postoperative diagnosis: Same Procedure performed: Laparoscopic cholecystectomy Surgeon: Dr. Daquan Crawford DO Estimated blood loss: 5 mL Specimens: Gallbladder to pathology Complications: None apparent Description of procedure: Patient was wheeled into the operative room and placed on the OR table in a supine position. Abdomen was inspected prepped and draped in usual sterile fashion. Time-out was performed and all present were in agreement. A 15 blade scalp was used to make a stab incision in the left upper quadrant and intra- abdominal insufflation was achieved using a Veress needle. After localizing the tissue incisions were made and a 5 millimeter trocar was placed into the umbilicus as well as 2 in the right upper quadrant. A 12 millimeter trocar was placed in the epigastrium. Gallbladder was grasped and elevated. The triangle of Calot was carefully dissected using blunt dissection and electrocautery until the triangle of Calot clearly identified. The cystic duct was clipped proximally and double clipped distally. The duct was then ligated proximally. The cystic artery was doubly clipped and ligated. The gallbladder was then removed from the liver bed using electrocautery. The gallbladder was removed from the abdomen using an Endo-Catch bag through the epigastric incision. The liver bed was inspected and no bleeding was seen. The abdomen was irrigated and suctioned. All ports removed. Skin was washed and dried. Incisions were closed with 4-0 Monocryl in a subcuticular interrupted fashion. Skin glue was applied. Patient tolerated the procedure well.
[2024-11-20] MEDS: ondansetron 2 mg/ML SDV 2 mL 4 MG IVP (09:19)
[2024-11-20] MEDS: fentaNYL 50 mcg/mL INJ 2mL IVP (09:22)
[2024-11-20] MEDS: metoclopramide 5 mg/mL SDV 2 mL 10 MG IVP (09:29)
[2024-11-20] MEDS: HYDROcodone-acetaminophen 7.5-325 mg Tablet 1 TAB PO (10:39)
--- NOTE | 2024-11-20 11:10 | ANE.PACU2 ---
Inpatient post-anesthesia follow up: Airway intact: Yes Vital signs: Temperature 97.3 F Pulse Rate 81 Respiratory Rate 16 Blood Pressure 137/59 Pulse Oximetry 93 Oxygen Delivery Me thod Room Air Oxygen Flow Rate 3 Fraction of Inspir ed Oxygen Hydration adequate: Yes Nausea and vomiting: No Pain level: 1 Mental status: Baseline
== END 2024-11-20 11:10 | disposition home or self-care (01) ==
PROVIDERS: Visit Provider Surgery
PROC: 0FT44ZZ Resection of Gallbladder, Percutaneous Endoscopic Approach (ICD-10-PCS; CPT 47562; principal; 2024-11-20 08:10)
DX: K80.10 Calculus of gallbladder with chronic cholecystitis without obstruction (principal); I10 Essential (primary) hypertension; Z98.1 Arthrodesis status; F17.210 Nicotine dependence, cigarettes, uncomplicated
CPT/HCPCS: 47562; 88304; J0360; J0690; J1100; J2250; J2405; J2704; J2765; J3010; J3490; J7030

== ENCOUNTER 2025-01-11 07:58 | Outpatient (CLI) | payer BC, MEDICAID, SELFPAY ==
--- NOTE | 2025-01-11 08:15 | CTR_ITS ---
PROCEDURE INFORMATION: Exam: CT Abdomen And Pelvis Without And With Contrast Exam date and time: 01/11/2025 8:23 AM Age: 59 years old Clinical indication: Abnormal findings; Abnormal radiologic finding of the abdomen; Radiologic exam and body structure: US gallbladder; Prior surgery; Surgery date: 6+ months; Surgery type: Gb, appy; Additional info: Renal mass protocol TECHNIQUE: Imaging protocol: Computed tomography of the abdomen and pelvis without and with contrast. 3D rendering (Not supervised by radiologist): MIP and/or 3D reconstructed images were created by the technologist. Radiation optimization: All CT scans at this facility use at least one of these dose optimization techniques: automated exposure control; mA and/or kV adjustment per patient size (includes targeted exams where dose is matched to clinical indication); or iterative reconstruction. Contrast material: OMNI 350; Contrast volume: 100 ml; Contrast route: INTRAVENOUS (IV); COMPARISON: US gall bladder [id number] 09/19/2024 8:10 AM RADIATION DOSE METRICS: Total DLP (mGy-cm): 2033.99 FINDINGS: Liver: Normal. No mass. Gallbladder and biliary ducts: Cholecystectomy. Pancreas: Normal. No ductal dilation. Spleen: Normal. No splenomegaly. Adrenal glands: Normal. No mass. Kidneys and ureters: 8 mm cyst in the upper pole of the right kidney. This is probably not the hypoechoic lesion seen on the prior ultrasound of the gallbladder from 09/19/2024. There is no finding corresponding to that lesion and it is presumably artifactual. It was previously seen on 1 image only. Stomach and bowel: Unremarkable. No obstruction. No mucosal thickening. Appendix: No evidence of appendicitis. Intraperitoneal space: Unremarkable. No free air. No significant fluid collection. Vasculature: Unremarkable. No abdominal aortic aneurysm. Lymph nodes: Unremarkable. No enlarged lymph nodes. Urinary bladder: Unremarkable as visualized. Reproductive: Unremarkable as visualized. Bones/joints: Unremarkable. No acute fracture. Soft tissues: Unremarkable. Other findings: lobulations bilaterally. CT/CT abdomen wo/w con [id number] IMPRESSION: 8 mm right upper pole cyst. The 2.6 cm low-attenuation right upper pole structure seen on prior ultrasound is not seen and was presumably artifactual. COMMENTS: Consistent with the [employer]'s Incidental Findings Committee white paper (J Am Kamala Radiol 2018): Any incidental renal lesion less than 1 cm or classified as too small to characterize, or any incidental cystic renal lesion characterized as simple-appearing, is likely benign. No follow-up imaging is recommended for these lesions per consensus recommendations based on imaging criteria.
[2025-01-11] MEDS: iohexol 350 mg/mL 500 mL Btl (per mL) IV (08:35)
== END 2025-01-11 07:59 | disposition home or self-care (01) ==
PROVIDERS: Visit Provider Surgery
DX: N28.89 Other specified disorders of kidney and ureter (principal); Z90.49 Acquired absence of other specified parts of digestive tract; N28.1 Cyst of kidney, acquired; R93.89 Abnormal findings on diagnostic imaging of other specified body structures
CPT/HCPCS: 74170

== ENCOUNTER → 2025-03-27 11:27 | Outpatient (BNVA) | payer BC, SELFPAY | PROVIDERS: PCP Family Medicine; Visit Provider Family Medicine | DX: I10 Essential (primary) hypertension (principal) | CPT/HCPCS: 80053; 80061; 81000; 84439; 84443; 85025 ==

== ENCOUNTER 2025-04-04 09:53 | Outpatient (CLI) | payer BC, MEDICAID, SELFPAY ==
--- NOTE | 2025-04-04 10:00 | MM_ITS ---
WS: [id number] BILATERAL SCREENING DIGITAL TOMOSYNTHESIS MAMMOGRAM WITH CAD HISTORY: screening COMPARISON: 07/04/2013 Bilateral CC and MLO views with tomosynthesis and synthetic mammography submitted. Computer aided detection analyzed. Breast composition: There are scattered areas of fibroglandular density. No suspicious masses, microcalcifications or architectural distortion. MM/MM scr BI tomosynthesis [id number] IMPRESSION: BI-RADS: 2 - Benign. FOLLOW UP: 1 Year Follow-up
== END 2025-04-04 09:54 | disposition home or self-care (01) ==
LOC: RAD 09:53
PROVIDERS: PCP Family Medicine; Visit Provider Family Medicine
DX: Z12.31 Encounter for screening mammogram for malignant neoplasm of breast (principal); R92.323 Mammographic fibroglandular density, bilateral breasts
CPT/HCPCS: 77063; 77067